=== PATIENT | female | born 1960 | race Native Hawaiian/Other Pacific Islander ===

== ENCOUNTER 2016-03-25 10:02 | Inpatient (IN) | payer OTHER ==
[~2016-03-25] VITALS: Ht 162.6 cm; Wt 80.5 kg
[2016-03-25] VITALS (16 sets, daily range): BP systolic 68–111; BP diastolic 34–94; TEMP 97.5–98; Ht 162.6 cm; Wt 80.5 kg
[~2016-03-25 10:02] MED LIST: ALEN70TA19 PO; BASE TOP; BUPROPN HCL300 MG PO; CALCIUM + D600 MG PO; CARAFATE1 GM PO; CARV3.12 PO; CLARITIN10 M1 PO; CLON0.5T36 PO; COUGH100 MG/5 M PO; DICY20TA34 PO; DIVALPROEX250 M1 PO; DIVALPROEX500 MG PO; FERROUS SULF325 M1 PO; HYDR5TAB9 PO; IMODIUM A-D2 MG PO; IPRASOL5 INH; LEVO0.0529 PO; LEVO0.2T35 PO; LISI20TA11 PO; LUVOX CR100 MG PO; MIRTAZAPINE7.5 MG PO; NEURONTIN 100M100 MG PO; NITR0.4S SL; OMEP40CA PO; TYLENOL325 MG PO; VITAMIN D350000 UNIT PO; WARF5TAB6 PO; XOPENEX0.31 MG INH; ZIPR20CA PO; ZIPR80CA PO; [UNRECOGNIZED DRUG - OTHER] PO
--- NOTE | 2016-03-25 11:00 | NUR ---
ADMITTED PT TO [facility] FROM [facility]. PT CAME VIA BED. TRANSFERRED PT TO BED. RECEIVED REPORT FROM ELAINE WAGNER RN. PT ADMITTED WITH HYPOTENSION. PLACED MONITORS ON PT. SINUS RYTHM NOTED ON THE MONITOR. BP 118/67. ORIENTED PT TO U SURROUNDINGS. PT CONFUSED AT TIMES. DR. SANTOS HERE AT BEDSIDE. PT HAS A 22G TO LFA NS @ 150ML/HR. PT HAS A DIAPER CLEAN AND DRY.
--- NOTE | 2016-03-25 11:25 | NUR ---
16F ALFARO INSERTED VIA REGIONAL ACCOUNT DIRECTOR. BLOOD NOTED IN URINE. PT IS ON COUMADIN AT HOME.
--- NOTE | 2016-03-25 12:23 | NUR ---
PT WATCHING TV. NAD NOTED AT THIS TIME.
--- NOTE | 2016-03-25 14:05 | NUR ---
BP DR. SANTOS NOTIFIED. RECEIVED NEW ORDERS.
--- NOTE | 2016-03-25 15:24 | NUR ---
PT SITTING UP EATING A SNACK. NAD NOTED AT THIS TIME.
--- NOTE | 2016-03-25 17:23 | NUR ---
BP 65/42. DR. SANTOS NOTIFIED. NEW ORDER RECEIVED.
--- NOTE | 2016-03-25 18:33 | NUR ---
PT EATING SUPPER.
--- NOTE | 2016-03-25 20:00 | NUR ---
ASSESSMENT COMPLETED AT THIS TIME. PATIENT COMPLETING IV BOLUS. B/P DYSTOLIC IN THE MID TO UPPER 30'S. IV 22G NOTED TO THE LEFT ARM INFUSING NS AT 999ML/HR (BOLUS). PATIENT IS SLEEPY BUT DOES ANSWER QUESTIONS WHEN ASKED. ALFARO INTACT AND PATENT APPROX 100 ML OF SERENA URINE NOTED. BED LOCKED IN LOW POSITION, SIDERAILS UP X2, CALL LACKEY WITHIN REACH.
[2016-03-26] VITALS (29 sets, daily range): BP systolic 79–145; BP diastolic 37–87; TEMP 98–98.3
[2016-03-26 07:29] LABS: PLATELET COUNT 82 K/uL (152-353)
--- NOTE | 2016-03-26 07:30 | NUR ---
AM MEDS ON HOLD UNTIL DR. SANTOS REVIEWS MEDS PER PHONE CALL WITH ANNETTE ROBBINS LPN.
[2016-03-26 07:44] LABS: POTASSIUM 4.5 mmol/L (3.6-5.2); SODIUM 136 mmol/L (136-145)
[2016-03-26 08:22] LABS: PARTIAL THROMBOPLASTIN TIME 75.3 SECONDS (24.5-33.6)
--- NOTE | 2016-03-26 09:20 | NUR ---
PT WATCHING TV. NAD NOTED AT THIS TIME.
--- NOTE | 2016-03-26 11:00 | NUR ---
BP 131/87. DOPAMINE DECREASED TO 3MCG/HR. WILL CONTINUE TO MONITOR.
--- NOTE | 2016-03-26 12:00 | NUR ---
BP 108/67. DOPAMINE DRIP D/C'D. WILL CONTINUE TO MONITOR.
--- NOTE | 2016-03-26 14:30 | NUR ---
RECEIVED ORDER TO SALINE LOCK IV. IV'S FLUSHED WITH NS. IVFS D/C'D.
--- NOTE | 2016-03-26 14:48 | NUR ---
MEDS CRUSHED AND GIVEN AT THIS TIME PER DR SANTOS.
--- NOTE | 2016-03-26 16:47 | NUR ---
PT RESTING QUIETLY WITH EYES CLOSED. WILL CONTINUE TO MONITOR.
--- NOTE | 2016-03-26 19:34 | NUR ---
1900-Received pt resting in bed with eyes closed. No distress noted at this time. Cheyanne noted to BSD. Assessment completed. Bed in lowest position. Call light within reach. HOB elevated. Will continue to monitor.
--- NOTE | 2016-03-26 20:37 | NUR ---
Pt sitting up at this time eating supper tray.
--- NOTE | 2016-03-26 23:39 | NUR ---
2315-Dr. Baker notified of pt's blood pressure. Orders given for 1000cc bolus of NS x1 dose at this time. Will continue to monitor.
[2016-03-27] VITALS (18 sets, daily range): BP systolic 74–124; BP diastolic 49–82; TEMP 97.8–98.1
--- NOTE | 2016-03-27 04:00 | NUR ---
Pt resting in bed with eyes closed. No distress noted. VSS per monitor. No change in assessment at this time. Will continue to monitor.
--- NOTE | 2016-03-27 07:30 | NUR ---
AM ASSESSMENT COMPLETE. PT AWAKE AND ALERT. SHARRON FEET FLOATING. NO SKIN BREAKDOWN NOTED.
--- NOTE | 2016-03-27 08:10 | NUR ---
PT STATES THAT SHE DOESNT WANT BREAKFAST
[2016-03-27 08:27] LABS: PLATELET COUNT 60 K/uL (152-353)
[2016-03-27 08:34] LABS: PARTIAL THROMBOPLASTIN TIME 47.2 SECONDS (24.5-33.6)
[2016-03-27 08:37] LABS: SODIUM 139 mmol/L (136-145)
--- NOTE | 2016-03-27 09:32 | NUR ---
PT CLEANED AND DRYED, LARGE SOFT STOOL NOTED
--- NOTE | 2016-03-27 09:32 | NUR ---
SKIN RED TO SHARRON GROIN AND ABD FOLD. BRIEF LEFT OFF AT THIS TIME. PT WAS INSTRUCTED TO WHY BRIEF WAS OFF. SHARRON FEET FLOATING
--- NOTE | 2016-03-27 11:47 | NUR ---
BP 90/58, PT AROUSES TO VERBAL STIMULI. BP TAKEN W/PT LYING ON LSIDE. PT ASKED TO TURN AND REPOSTION, BP 89/61 MAP 68
--- NOTE | 2016-03-27 14:26 | NUR ---
Cielo AT TO PERFORM ECHO
--- NOTE | 2016-03-27 19:45 | NUR ---
PM ASSESS. COMPLETED. SL 20 GA LT WRIST, AND SL 22 GA LFA. INTRODUCED MYSELF TO PT. LUNGS CLEAR AND DEMINISHED LOWER LOBES. BS + X4. FC TO BS DRAINAGE. PT. SKIN IS FLUSHED WITH 97.9 A. AND PT. C/O BEING COLD. HAS SEVERAL BLANKETS ON BED AND HEEL FLOATING.
--- NOTE | 2016-03-27 20:15 | NUR ---
ASKED ME TO REPOSITION PILLOW BETWEEN LEGS. PILLOW POSITIONED UNTIL SATISFIED PT.
--- NOTE | 2016-03-27 21:00 | NUR ---
PT CALLS FOR ME TO COVER HER SPRITE WITH MONI.
[2016-03-28] VITALS (9 sets, daily range): BP systolic 96–123; BP diastolic 57–72; TEMP 97.8–98.3
--- NOTE | 2016-03-28 | NUR ---
PT. TURNED TO SEMI FOWLERS AND CONTINUE TO FLOAT HEELS AND POSITION LIMBS UNTIL COMFORTABLE. PT. THANKED ME.
--- NOTE | 2016-03-28 02:00 | NUR ---
PT REFUSED TO BE TURNED, STATED SHE JUST GOT COMFORTABLE.
--- NOTE | 2016-03-28 04:00 | NUR ---
PT. CALLED ME AND WANTED TO BE TURNED THIS TIME. TURNED TO THE RIGHT AND LIMBS REPOSITIONED AND HEELS FLOATING, AND CHECKED TO MAKE SURE SHE IS COMFORTABLE.
--- NOTE | 2016-03-28 07:00 | NUR ---
REPORT FROM PM STAFF. PT RESTING ON R SIDE WITH EYES CLOSED. ALFARO TO BSD WITH SERENA URINE WITH SM AMT OF MUCUS IN TUBING.
--- NOTE | 2016-03-28 08:00 | NUR ---
PT WANTING TO BE' TURNED TO MY BACK'. PT ENCOUAGED TO TURN SELF MUCH POSSIBLE,ASSITED TO TURN,PT STATES' I DIDNT THINK THAT I COULD MOVE WITH THAT CATHETER IN THERE,' ASSURED PT THAT SHE COULD MOVE GET UP WITH ASSISTANCE.
[2016-03-28 08:18] LABS: PARTIAL THROMBOPLASTIN TIME 39.9 SECONDS (24.5-33.6)
[2016-03-28 08:21] LABS: PLATELET COUNT 71 K/uL (152-353)
[2016-03-28 08:39] LABS: POTASSIUM 3.9 mmol/L (3.6-5.2); SODIUM 138 mmol/L (136-145)
--- NOTE | 2016-03-28 09:00 | NUR ---
PT WITH LARGE LOOSE BM,ASSISTED WITH PERICARE & DIAPER CHANGE.
--- NOTE | 2016-03-28 10:30 | NUR ---
PT CALLED HER BROTHER & TALKED WITH HIM. ASSITED TO TURN & REPOSITION.
--- NOTE | 2016-03-28 12:05 | NUR ---
DR CATES IN TO SEE PT. PT 'WANTS TO GO BACK TO [facility]'. DR CATES AWARE.
--- NOTE | 2016-03-28 12:26 | NUR ---
BLADDER TRAINING EXPLAINED TO PT. ALFARO CLAMPED.
--- NOTE | 2016-03-28 13:30 | NUR ---
BLADDER TRAINING CONTINUES. PT WITH EYES CLOSED.
--- NOTE | 2016-03-28 14:43 | NUR ---
REPORT CALLED TO NORBERTO BROWN RN AT [facility].
--- NOTE | 2016-03-28 15:15 | NUR ---
BOTH IV'S D/C'D WITH CANNULAS INTACT.SITES SECURED.ALFARO D/CD, BATH& PERSONAL CARE.
--- NOTE | 2016-03-28 16:04 | NUR ---
REPORT CALLED TO AYANA WAGNER RN AT [facility]. DISCUSSED LABS & PT HAVING VOIDED X2 AFTER ALFARO OUT.
--- NOTE | 2016-03-28 16:47 | NUR ---
PT TRANSFERRED STABLE TO [facility]IA [facility] PER [facility] STAFF.
== END 2016-03-28 17:00 | disposition other institution (70) | DRG 315 ==
LOC: ICU 10:02
PROVIDERS: Emergency Medicine; ADMIT Internal Medicine
DX: I95.89 Other hypotension (principal); F31.89 Other bipolar disorder; R53.1 Weakness; R79.1 Abnormal coagulation profile; I25.10 Atherosclerotic heart disease of native coronary artery without angina pectoris
CPT/HCPCS: 36415; 51702; 80053; 81000; 85027; 85610; 85730; 93306; J1265